=== PATIENT | male | born 1990 | race Caucasian/White ===

== ENCOUNTER 2018-11-16 14:06 | Emergency (ER) | payer OTHER ==
[2018-11-16 14:42] VITALS: BP 137/73
--- NOTE | 2018-11-16 14:43 | Emergency Department Report ---
Blank Doc - Documentation Documentation: This is a 28-year-old male that presents with lower back pain. Stated has been working with heavy lifting. This initial assessment/diagnostic orders/clinical plan/treatment(s) is/are subject to change based on patient's health status, clinical progression and re- assessment by fellow clinical providers in the ED. Further treatment and workup at subsequent clinical providers discretion. Patient/guardians urged not to elope from the ED as their condition may be serious if not clinically assessed and managed. Initial orders include: 1- Patient sent to [facility] for further evaluation and treatment
[2018-11-16] MEDS ORDERED: PERCOCET 5/325 PO ONE (15:30)
--- NOTE | 2018-11-16 16:21 | Cat Scan Report ---
PROCEDURE: CT ABDOMEN PELVIS WO CON TECHNIQUE: Axial helical imaging through the abdomen and pelvis with sagittal and coronal reformatte d images obtained. HISTORY: severe flank pain COMPARISONS: None FINDINGS: Visualization of detail in portions of the abdomen and pelvis is significantly limited by motion issac fact. The lung bases are without infiltrate, pneumothorax or pleural fluid collection. The liver, spleen, pancreas and adrenal glands are unremarkable. The kidneys are unremarkable. There is no evidence of hydronephrosis, hydroureter or urinary tract ca lculi. The bowel is normal caliber. The visualized portion of the appendix is normal caliber and contains air. There is no evidence of pneumoperitoneum or free fluid. The abdominal aorta is normal caliber. There is no definite evidence of intra-abdominal adenopathy on this study without contrast. The urinary bladder is moderately distended and unremarkable in appearance. The prostate gland and seminal vesicles are unremarkable. The bony structures are notable for the appearance of disc bulges at the L3-L4, L4-L5 and L5-S1 level s. IMPRESSION: 1. Study degraded by motion artifact. 2. No definite evidence of an acute intra-abdominal process. However, subtle inflammatory change coul d be missed due to significant motion artifact. 3. No evidence of hydronephrosis or urinary tract calculi. 4. Appearance of disc bulges in the mid and lower lumbar spine. . This document is electronically signed by Monika Rene MD., November 16 2018 04:19:28 PM ET
--- NOTE | 2018-11-16 17:45 | Emergency Department Report ---
ED Back Pain/Injury HPI - General Chief Complaint: Back Pain/Injury Stated Complaint: BACK PAIN Time Seen by Provider: 11/16/18 14:42 Source: patient Limitations: No Limitations - History of Present Illness MD Complaint: back pain Place: work Severity: moderate Severity scale (0 -10): 6 Quality: aching Consistency: intermittent Improves With: immobilization Worsens With: movement, walking Context: while lifting, turning/twisting Associated Symptoms: denies other symptoms - Related Data Previous Rx's Medication Instructions Recorded Last Taken Type Cyclobenzaprine [Flexeril] 10 mg PO QHS PRN #20 tablet 11/16/18 Unknown Rx Ibuprofen [Motrin] 800 mg PO Q8HR #30 tablet 11/16/18 Unknown Rx Allergies Allergy/AdvReac Type Severity Reaction Status Date / Time aspirin Allergy Swelling Verified 11/16/18 14:08 ED Review of Systems ROS: Stated complaint: BACK PAIN Other details as noted in HPI Comment: All other systems reviewed and negative ED Past Medical Hx - Social History Smoking Status: Never Smoker Substance Use Type: None - Medications Home Medications: Home Medications Medication Instructions Recorded Confirmed Last Taken Type Cyclobenzaprine [Flexeril] 10 mg PO QHS PRN #20 tablet 11/16/18 Unknown Rx Ibuprofen [Motrin] 800 mg PO Q8HR #30 tablet 11/16/18 Unknown Rx ED Physical Exam - General Limitations: No Limitations General appearance: alert, in no apparent distress - Head Head exam: Present: atraumatic, normocephalic - Eye Eye exam: Present: normal appearance - ENT ENT exam: Present: mucous membranes moist - Neck Neck exam: Present: normal inspection - Respiratory Respiratory exam: Present: normal lung sounds bilaterally. Absent: respiratory distress - Cardiovascular Cardiovascular Exam: Present: regular rate, normal rhythm. Absent: systolic murmur, diastolic murmur, rubs, gallop - GI/Abdominal GI/Abdominal exam: Present: soft, normal bowel sounds - Rectal Rectal exam: Present: deferred - Extremities Exam Extremities exam: Present: normal inspection - Back Exam Back exam: Present: normal inspection - Neurological Exam Neurological exam: Present: alert, oriented X3 - Psychiatric Psychiatric exam: Present: normal affect, normal mood - Skin Skin exam: Present: warm, dry, intact, normal color. Absent: rash ED Course Vital Signs 11/16/18 14:40 Temperature 98.3 F Pulse Rate 67 Respiratory 18 Rate Blood Pressure 137/73 O2 Sat by Pulse 97 Oximetry ED Medical Decision Making - Radiology Data Radiology results: report reviewed, image reviewed interpreted by me: FINDINGS: Visualization of detail in portions of the abdomen and pelvis is significantly limited by motion artifact. The lung bases are without infiltrate, pneumothorax or pleural fluid collection. The liver, spleen, pancreas and adrenal glands are unremarkable. The kidneys are unremarkable. There is no evidence of hydronephrosis, hydroureter or urinary tract calculi. The bowel is normal caliber. The visualized portion of the appendix is normal caliber and contains air. There is no evidence of pneumoperitoneum or free fluid. The abdominal aorta is normal caliber. There is no definite evidence of intra-abdominal adenopathy on this study without contrast. The urinary bladder is moderately distended and unremarkable in appearance. The prostate gland and seminal vesicles are unremarkable. The bony structures are notable for the appearance of disc bulges at the L3-L4, L4-L5 and L5-S1 levels. IMPRESSION: 1. Study degraded by motion artifact. 2. No definite evidence of an acute intra-abdominal process. However, subtle inflammatory change could be missed due to significant motion artifact. 3. No evidence of hydronephrosis or urinary tract calculi. 4. Appearance of disc bulges in the mid and lower lumbar spine. . This document is electronically signed by Monika Rene MD., November 16 2018 04:19:28 PM ET Transcribed By: ED Dictated By: MONIKA RENE MD Electronically Authenticated By: MONIKA RENE MD Signed Date/Time: 11/16/18 1621 - Medical Decision Making 28-year-old male presents to ED with lumbar disc herniation causing lumbar pain ED course: Patient received 2 tablets of Soldier in ED. Vital signs are normal patient is in no acute distress Discussed with patient follow-up with primary care physician. Discussed the patient and take medications as prescribed. Patient has no neurological deficit. Patient is alert and oriented 3 and understands all instructions given. Discussed drowsiness effect of Flexeril makes her drowsy and not to operate machinery while taking flexeril Critical care attestation.: If time is entered above; I have spent that time in minutes in the direct care of this critically ill patient, excluding procedure time. ED Disposition Clinical Impression: Lumbar radiculopathy Disposition: [id number] TO HOME OR SELFCARE Is pt being admited?: No Does the pt Need Aspirin: No Condition: Stable Instructions: Lumbar Radiculopathy (ED), Lumbar Disc Herniation (ED) Additional Instructions: Make sure to follow up with the primary care physician as discussed. Take all your medications as you've been prescribed. If you have any worsening symptoms or develop new symptoms please return to ED immediately. Prescriptions: Cyclobenzaprine [Flexeril] 10 mg PO QHS PRN #20 tablet PRN Reason: Muscle Spasm Ibuprofen [Motrin] 800 mg PO Q8HR #30 tablet [facility] [Primary Care Provider] - 3-5 Days HORACIO TOBAR MD [Staff Physician] - 3-5 Days Forms: Work/School Release Form(ED) Time of Disposition: 17:45
== END 2018-11-16 18:09 | disposition home or self-care (01) ==
LOC: ED 14:06
DX: M54.16 Radiculopathy, lumbar region (principal); Z88.6 Allergy status to analgesic agent
CPT/HCPCS: 74176; 99284